=== PATIENT | female | born 2005 | race African-American/Black ===

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

== ENCOUNTER 2023-02-13 09:59 | Emergency (ER) | payer OTHER ==
[2023-02-13 10:39] VITALS: BP 100/59; PULSE 81; RESP 18; TEMP 98.2; BMI 25.4
== END 2023-02-13 12:29 | disposition home or self-care (01) ==
LOC: JERFT 09:59
DX: H00.012 Hordeolum externum right lower eyelid (principal); H57.11 Ocular pain, right eye; R22.9 Localized swelling, mass and lump, unspecified; M79.661 Pain in right lower leg; M79.89 Other specified soft tissue disorders
CPT/HCPCS: 99282-25

== ENCOUNTER 2023-03-26 23:06 | Emergency (ER) | payer OTHER ==
[2023-03-26 23:11] VITALS: BP 103/70; PULSE 100; RESP 18; TEMP 99.4; BMI 26.5
[2023-03-27] MEDS ORDERED: MAG HYDROX/ALH/SMC/DPHA/LIDO 240 ML MOUTHWASH MM ONE (01:15)
[2023-03-27] MEDS ORDERED: DEXAMETHASONE SOD PHOSPHATE 10 MG/1 ML VIAL ONE (01:47)
[2023-03-27] MEDS ORDERED: AZITHROMYCIN 500 MG TABLET ONE (01:47)
[2023-03-27] MEDS ORDERED: DEXAMETHASONE SOD PHOSPHATE 10 MG/1 ML VIAL IM ONE (01:51)
[2023-03-27] MEDS ORDERED: AZITHROMYCIN 500 MG TABLET PO ONE (01:52)
[2023-03-27] MEDS ORDERED: MAG HYDROX/ALH/SMC/DPHA/LIDO 240 ML MOUTHWASH MM SCH (06:00)
== END 2023-03-27 01:56 | disposition home or self-care (01) ==
LOC: JERFT 23:06
PROC: 3E023GC Introduction of Other Therapeutic Substance into Muscle, Percutaneous Approach (ICD-10-PCS; principal; 2023-03-27)
DX: U07.1 COVID-19 (principal); J03.90 Acute tonsillitis, unspecified; R09.81 Nasal congestion
CPT/HCPCS: 0241U-QW; 87070; 87651; 99284-25; J1100

== ENCOUNTER 2023-06-07 10:14 | Emergency (ER) | payer OTHER ==
[2023-06-07 10:33] VITALS: BP 121/84; PULSE 95; RESP 16; TEMP 98.4; BMI 26.4
[2023-06-07 11:17] LABS: URINE APPEARANCE CLEAR; URINE BILIRUBIN NEGATIVE (NEGATIVE); URINE COLOR YELLOW; URINE GLUCOSE (UA) NEGATIVE (NEGATIVE); URINE KETONE NEGATIVE (NEGATIVE); URINE LEUK ESTERASE NEGATIVE (NEGATIVE); URINE NITRITE NEGATIVE (NEGATIVE); URINE PROTEIN NEGATIVE (NEGATIVE); URINE UROBILINOGEN 0.2 mg/dL (0.2-1.0)
[2023-06-07 11:18] LABS: HCG,QUALITATIVE URINE Positive
== END 2023-06-07 15:55 | disposition home or self-care (01) ==
LOC: JER 10:14
DX: O26.891 Other specified pregnancy related conditions, first trimester (principal); R10.9 Unspecified abdominal pain; Z3A.01 Less than 8 weeks gestation of pregnancy
CPT/HCPCS: 76801-TC; 81003; 84703; 87086; 99284-25

== ENCOUNTER 2023-06-12 21:01 | Emergency (ER) | payer OTHER ==
[2023-06-12 21:32] VITALS: BMI 26.4
[2023-06-12] MEDS ORDERED: ONDANSETRON 4 MG/2 ML VIAL ONE (21:40)
[2023-06-12] MEDS ORDERED: ACETAMINOPHEN INJECTION 100 ML IVPB ONE (21:40)
[2023-06-12] MEDS: ACETAMINOPHEN 1000 MG/100 ML BAG IVPB ONE (22:06)
[2023-06-12] MEDS: ONDANSETRON 4 MG/2 ML VIAL IVPUSH ONE (22:06)
[2023-06-12 22:14] LABS: BASO % 0.5 % (0-2.0); EOS % 0.8 % (0-4.5); HEMATOCRIT 37.2 % (32.4-45.2); HEMOGLOBIN 12.6 GM/dL (10.7-15.3); MEAN CELL VOLUME 82.3 fl (80-96); MEAN PLT VOLUME 10.7 fl (7.5-11.1); MONO % 6.2 % (3.8-10.2); NEUT % 64.5 % (42.8-82.8); PLATELET COUNT 204 10^3/uL (134-434); RBC 4.52 M/mm3 (3.60-5.2); RDW 15.3 % (11.6-15.6); WHITE BLOOD COUNT 9.4 K/mm3 (4.0-10.0)
[2023-06-12 22:20] LABS: EPI CELLS >36 /uL (0-25.1); HYALINE CASTS 0 /uL (0-3.1); PH,URINE 8.5 (5.0-8.0); URINE APPEARANCE CLEAR; URINE BACTERIA 21 /uL (0-1359); URINE BILIRUBIN NEGATIVE (NEGATIVE); URINE COLOR YELLOW; URINE GLUCOSE (UA) NEGATIVE (NEGATIVE); URINE KETONE NEGATIVE (NEGATIVE); URINE LEUK ESTERASE NEGATIVE (NEGATIVE); URINE NITRITE NEGATIVE (NEGATIVE); URINE PROTEIN NEGATIVE (NEGATIVE); URINE RBC 129 /uL (0-23.9); URINE UROBILINOGEN 0.2 mg/dL (0.2-1.0); URINE WBC 8 /uL (0-25.8)
[2023-06-12 22:30] LABS: POTASSIUM 4.8 mmol/L (3.5-5.1)
[2023-06-12] MEDS: morphine CARPU-JECT 2 MG/1 ML DISP.SYRIN IVPUSH ONE (22:31)
[2023-06-12 22:32] LABS: CALCIUM 8.8 mg/dL (8.5-10.1)
[2023-06-12 22:33] LABS: ALBUMIN 3.8 g/dl (3.4-5.0); BLOOD UREA NITROGEN 4.9 mg/dL (7-18)
[2023-06-12 22:36] LABS: CREATININE 0.8 mg/dL (0.55-1.3)
[2023-06-12 22:37] LABS: BILIRUBIN,TOTAL 0.4 mg/dL (0.2-1)
[2023-06-12 22:38] LABS: TOT PROT 7.5 g/dl (6.4-8.2)
[2023-06-12 22:59] LABS: HCG,QUALITATIVE URINE Positive
[2023-06-12 23:43] LABS: INR 0.99 (0.83-1.09); PROTHROMBIN TIME (PATIENT) 11.5 SEC (9.7-13.0)
[2023-06-12 23:46] LABS: ACTIVATED PTT 27.5 SECONDS (25.2-36.5)
[2023-06-13] MEDS ORDERED: KETOROLAC TROMETHAMINE 15 MG/ML VIAL ONE (00:54)
[2023-06-13] MEDS: KETOROLAC TROMETHAMINE 15 MG/ML VIAL IVPUSH ONE (01:02)
[2023-06-13 01:37] VITALS: BP 97/65; PULSE 112; RESP 16; TEMP 98
== END 2023-06-13 03:01 | disposition home or self-care (01) ==
LOC: JER 21:01
PROC: 3E030NZ Introduction of Analgesics, Hypnotics, Sedatives into Peripheral Vein, Open Approach (ICD-10-PCS; principal; 2023-06-12)
PROC: 3E030NZ Introduction of Analgesics, Hypnotics, Sedatives into Peripheral Vein, Open Approach (ICD-10-PCS; 2023-06-12)
PROC: 3E030GC Introduction of Other Therapeutic Substance into Peripheral Vein, Open Approach (ICD-10-PCS; 2023-06-12)
PROC: 3E0303Z Introduction of Anti-inflammatory into Peripheral Vein, Open Approach (ICD-10-PCS; 2023-06-13)
DX: O04.80 (Induced) termination of pregnancy with unspecified complications (principal)
CPT/HCPCS: 36415; 76817-TC; 80053; 81003; 84702; 84703; 85025; 85610; 85730; 86850; 86900; 86901; 87086; 99284-25; J0131

== ENCOUNTER 2024-10-30 09:24 | Emergency (ER) | payer OTHER ==
[2024-10-30 09:35] VITALS: BP 96/78; PULSE 89; RESP 20; TEMP 98.4; BMI 27.3
[2024-10-30 12:08] LABS: ABSOLUTE IMMATURE GRANULOCYTES 0.01 x10^3/uL (0.0-0.031); BASOPHILS # 0.02 x10^3/uL (0.01-0.08); EOSINOPHIL % 1.0 % (0.7-5.8); EOSINOPHILS # 0.07 x10^3/uL (0.04-0.36); MCHC 33.8 g/dl (32.2-35.5); MEAN CELL VOLUME 84.3 fl (79.4-94.8); MEAN PLT VOLUME 12.6 fl (9.4-12.3); MONOCYTE # 0.39 x10^3/uL (0.24-0.86); MONOCYTE % 5.7 % (4.7-12.5); RDW 14.6 % (12.1-16.5)
[2024-10-30 12:11] LABS: URINE APPEARANCE CLEAR; URINE BILIRUBIN NEGATIVE (NEGATIVE); URINE COLOR YELLOW; URINE GLUCOSE (UA) NEGATIVE (NEGATIVE); URINE KETONE NEGATIVE (NEGATIVE); URINE LEUK ESTERASE NEGATIVE (NEGATIVE); URINE NITRITE NEGATIVE (NEGATIVE); URINE PROTEIN NEGATIVE (NEGATIVE); URINE UROBILINOGEN 0.2 mg/dL (0.2-1.0)
[2024-10-30] MEDS: SODIUM CHLORIDE 0.9% 500 ML INFUS.BAG IV ONE (12:30)
[2024-10-30] MEDS ORDERED: FAMOTIDINE 20 MG/50 ML IVPB 20 MG/50 ML MG IVPB ONE (12:30)
[2024-10-30] MEDS ORDERED: ACETAMINOPHEN INJECTION 100 ML ONE (12:30)
[2024-10-30] MEDS: FAMOTIDINE 20 MG/50 ML IVPB 20 MG/50 ML MG IVPB ONE (12:31)
[2024-10-30 12:48] LABS: GLUCOSE,RANDOM 86.0 mg/dL (74-106); TOT PROT 7.8 g/dl (6.4-8.2)
[2024-10-30 12:49] LABS: CO2 20.0 mmol/L (21-32)
[2024-10-30 12:50] LABS: ALK PHOS 77.0 U/L (40-150)
[2024-10-30] MEDS: ACETAMINOPHEN 1000 MG/100 ML BAG IVPB ONE (12:52)
[2024-10-30 12:53] LABS: SGPT/ALT 8.0 U/L (0-55)
[2024-10-30 12:54] LABS: CREATININE 0.73 mg/dL (0.55-1.3); SGOT/AST 23.0 U/L (5-34)
== END 2024-10-30 14:00 | disposition home or self-care (01) ==
LOC: JER 09:24
PROC: 3E033GC Introduction of Other Therapeutic Substance into Peripheral Vein, Percutaneous Approach (ICD-10-PCS; principal; 2024-10-30)
PROC: 3E033NZ Introduction of Analgesics, Hypnotics, Sedatives into Peripheral Vein, Percutaneous Approach (ICD-10-PCS; 2024-10-30)
DX: K29.00 Acute gastritis without bleeding (principal); R11.2 Nausea with vomiting, unspecified; R10.13 Epigastric pain
CPT/HCPCS: 36415; 76705-TC; 80053; 81003; 83690; 84703; 85025; 87086; 99285-25